=== PATIENT | male | born 1955 | race Caucasian/White ===

== ENCOUNTER → 2019-03-26 | Outpatient (CLI) | payer OTHER ==
[2019-03-26 13:13] LABS: BASO % 0.6 % (0.0-1.0); EOS # 0.1 10^3/uL (0.0-0.50); EOS % 1.4 % (0.0-3.0); HEMATOCRIT 43.3 % (42.0-52.0); HEMOGLOBIN 15.3 g/dl (13.5-17.5); LYMPH # 1.9 10^3/uL (1.5-4.5); LYMPH % 30.2 % (24.0-44.0); MEAN CORPUSCULAR HEMOGLOBIN 33.7 pg (27.0-33.0); MEAN CORPUSCULAR HGB CONC 35.3 g/dl (32.0-36.5); MEAN CORPUSCULAR VOLUME 95.4 fl (80.0-96.0); MONO # 0.6 10^3/uL (0.0-0.8); MONO % 9.1 % (0.0-5.0); NEUTROPHILS # 3.7 10^3/uL (1.8-7.7); NEUTROPHILS % 58.2 % (36.0-66.0); PLATELET COUNT, AUTOMATED 235 10^3/uL (150-450); RED BLOOD COUNT 4.54 10^6/uL (4.30-6.10); WHITE BLOOD COUNT 6.4 10^3/uL (4.0-10.0)
[2019-03-26 13:48] LABS: ALBUMIN 4.2 GM/DL (3.2-5.2); ALT/SGPT 52 U/L (12-78); BILIRUBIN,TOTAL 0.5 MG/DL (0.2-1.0); BLOOD UREA NITROGEN 24 MG/DL (7-18); CALCIUM LEVEL 9.5 MG/DL (8.8-10.2); CARBON DIOXIDE LEVEL 31 MEQ/L (21-32); CHLORIDE LEVEL 104 MEQ/L (98-107); CREATININE FOR GFR 1.01 MG/DL (0.70-1.30); FREE T4 1.16 NG/DL (0.76-1.46); GLOMERULAR FILTRATION RATE > 60.0 (>49); GLUCOSE, FASTING 78 MG/DL (70-100); MAGNESIUM LEVEL 2.3 MG/DL (1.8-2.4); SODIUM LEVEL 141 MEQ/L (136-145); TOTAL PROTEIN 7.5 GM/DL (6.4-8.2)
[2019-03-28 00:08] LABS: Lyme Disease IgG/IgM Antibodie <0.91 ISR (0.00-0.90); Lyme Disease IgM Ab Quantitati <0.80 index (0.00-0.79)
== END ==
LOC: M WUC 10:39
PROVIDERS: ATTEND Physician Assistant
DX: R00.2 Palpitations (principal)

== ENCOUNTER → 2019-05-28 | Outpatient (CLI) | payer BC, OTHER ==
--- NOTE | 2019-05-31 19:52 | SLEEPHOME ---
DATE OF PROCEDURE: 05/30/2019 ORDERED BY: Junior Gabriel [facility] home sleep testing was performed due to concern for the obstructive sleep apnea syndrome. For testing a nocturnal T3 respiratory monitoring device was used. Continuous record was made of pulse, oxygen saturation, airflow, chest, abdominal strain and body position. 9 hours of 59 minutes of data were reviewed. There were 5 hours and 45 minutes marked as time in bed. During the interval marked time in bed, there were 68 respiratory events identified of 10 seconds in duration or greater for a respiratory event index of 11.8. The events were both mixed central and obstructive. There were 28 mixed and central events. Baseline pulse rate 54, pulse rate ranged 46-84. Baseline saturation 95%, saturations fell to 90%. Testing was performed in both the supine and nonsupine positions. IMPRESSION: Abnormal home sleep testing with repetitive respiratory events and oxygen desaturations to 90% with a respiratory event index of 11.8 is consistent with the obstructive sleep apnea syndrome. RECOMMENDATIONS: The patient should be encouraged to undergo a formal sleep evaluation.
== END ==
LOC: M SLEEP HO 07:46
PROVIDERS: ATTEND Physician Assistant
DX: R53.83 Other fatigue (principal)

== ENCOUNTER → 2019-09-03 | Outpatient (REF) | payer OTHER, BC ==
[2019-09-03 12:36] LABS: BASO # 0.1 10^3/uL (0.0-0.2); BASO % 0.7 % (0.0-1.0); EOS # 0.1 10^3/uL (0.0-0.5); EOS % 0.8 % (0.0-3.0); HEMATOCRIT 41.2 % (42.0-52.0); HEMOGLOBIN 14.8 g/dl (13.5-17.5); LYMPH # 1.9 10^3/uL (1.5-5.0); LYMPH % 26.6 % (24.0-44.0); MEAN CORPUSCULAR HEMOGLOBIN 33.2 pg (27.0-33.0); MEAN CORPUSCULAR HGB CONC 35.9 g/dl (32.0-36.5); MEAN CORPUSCULAR VOLUME 92.4 fl (80.0-96.0); MONO # 0.4 10^3/uL (0.0-0.8); MONO % 6.2 % (0.0-5.0); NEUTROPHILS # 4.6 10^3/uL (1.5-8.5); NEUTROPHILS % 65.4 % (36.0-66.0); PLATELET COUNT, AUTOMATED 202 10^3/uL (150-450); RED BLOOD COUNT 4.46 10^6/uL (4.30-6.10); WHITE BLOOD COUNT 7.1 10^3/uL (4.0-10.0)
[2019-09-03 13:06] LABS: ALBUMIN 3.9 GM/DL (3.2-5.2); ALT/SGPT 57 U/L (12-78); BILIRUBIN,TOTAL 0.8 MG/DL (0.2-1.0); BLOOD UREA NITROGEN 17 MG/DL (7-18); CALCIUM LEVEL 9.2 MG/DL (8.8-10.2); CARBON DIOXIDE LEVEL 30 MEQ/L (21-32); CHLORIDE LEVEL 104 MEQ/L (98-107); CHOLESTEROL LEVEL 192 MG/DL (<200); CREATININE FOR GFR 1.03 MG/DL (0.70-1.30); FREE T4 1.22 NG/DL (0.76-1.46); GLOMERULAR FILTRATION RATE > 60.0 (>49); GLUCOSE, FASTING 92 MG/DL (70-100); HDL CHOLESTEROL 58 MG/DL (>40); LDL CHOLESTEROL 118 MG/DL (<100); NON-HDL-C 134 MG/DL; POTASSIUM SERUM 4.2 MEQ/L (3.5-5.1); SODIUM LEVEL 140 MEQ/L (136-145); TOTAL PROTEIN 6.9 GM/DL (6.4-8.2); TRIGLYCERIDES LEVEL 79 MG/DL (<150)
[2019-09-05 00:06] LABS: PSA TOTAL 0.5 ng/mL (0.0-4.0)
== END ==
LOC: M LABDRAW1 12:08
PROVIDERS: ATTEND Physician Assistant
DX: Z12.5 Encounter for screening for malignant neoplasm of prostate (principal); I10 Essential (primary) hypertension; G47.33 Obstructive sleep apnea (adult) (pediatric)

== ENCOUNTER 2020-07-11 17:20 | Emergency (ER) | payer BC, OTHER ==
[~2020-07-11] VITALS: Ht 177.8 cm; Wt 72.8 kg
[~2020-07-11 17:20] MED LIST changes: -CIPR-249 PO; -FLAG500T PO
[2020-07-11] MEDS ORDERED: NS 1,000 ML IV ONE (18:45)
[2020-07-11 19:39] LABS: BASO % 0.3 % (0.0-1.0); EOS % 0.3 % (0.0-3.0); HEMATOCRIT 39.2 % (42.0-52.0); HEMOGLOBIN 13.3 g/dl (13.5-17.5); LYMPH # 1.1 10^3/uL (1.5-5.0); LYMPH % 9.5 % (24.0-44.0); MEAN CORPUSCULAR HEMOGLOBIN 32.4 pg (27.0-33.0); MEAN CORPUSCULAR HGB CONC 33.9 g/dl (32.0-36.5); MEAN CORPUSCULAR VOLUME 95.6 fl (80.0-96.0); MONO # 0.7 10^3/uL (0.0-0.8); MONO % 5.7 % (0.0-5.0); NEUTROPHILS # 9.8 10^3/uL (1.5-8.5); NEUTROPHILS % 83.7 % (36.0-66.0); PLATELET COUNT, AUTOMATED 182 10^3/uL (150-450); WHITE BLOOD COUNT 11.8 10^3/uL (4.0-10.0)
[2020-07-11 20:14] LABS: ALBUMIN 3.5 GM/DL (3.2-5.2); BILIRUBIN,DIRECT 0.3 MG/DL (0.0-0.2); TOTAL PROTEIN 6.9 GM/DL (6.4-8.2)
[2020-07-11] MEDS ORDERED: ISOVUE-370 76% 100ML VIAL As Ordered ONE (20:18)
--- NOTE | 2020-07-11 21:12 | REPVR ---
PROCEDURE INFORMATION: Exam: CT Abdomen And Pelvis With Contrast Exam date and time: 07/11/2020 8:24 PM Age: 64 years old Clinical indication: Abdominal pain; Localized; Lower; Additional info: Lower abd pain, ? diverticulitis TECHNIQUE: Imaging protocol: Computed tomography of the abdomen and pelvis with intravenous contrast. Radiation optimization: All CT scans at this facility use at least one of these dose optimization techniques: automated exposure control; mA and/or kV adjustment per patient size (includes targeted exams where dose is matched to clinical indication); or iterative reconstruction. Contrast material: ISOVUE 370; Contrast volume: 100 ml; Contrast route: INTRAVENOUS (IV); COMPARISON: CR ABDOMEN FLAT/UPRIGHT PA CHEST 07/11/2020 3:16 PM FINDINGS: Lungs: Minimal bilateral lower lobe dependent atelectasis. Liver: There are multiple hepatic cysts measuring up to 2.2 cm in the posterior right hepatic lobe with a Hounsfield measurement of -6. Gallbladder and bile ducts: Normal. No calcified stones. No ductal dilation. Pancreas: Normal. No ductal dilation. Spleen: Normal. No splenomegaly. Adrenals: Normal. No mass. Kidneys and ureters: There is a right renal cyst measuring 10 mm with a Hounsfield measurement of 8 consistent with a Bosniak 1 cyst. No follow-up imaging is recommended. Stomach and bowel: Colonic diverticulosis with colonic wall thickening and pericolonic induration of the mid sigmoid colon along the left pelvic sidewall. There is thickening of the adjacent lateral pelvic fascia with some induration of the adjacent extraperitoneal fat. No pericolonic abscess is seen. There is minimal microperforation with punctate focus of contained gas along the left lateral pelvic fascia. Appendix: There are no changes of appendicitis. A normal appendix is not seen. Intraperitoneal space: Unremarkable. No free air. No significant fluid collection. Vasculature: There is mild calcification of the abdominal aorta with extension into the iliac arteries. Lymph nodes: Unremarkable. No enlarged lymph nodes. Urinary bladder: Unremarkable as visualized. Reproductive: Unremarkable as visualized. Bones/joints: Bilateral spondylolysis of L5 with grade 2 anterolisthesis and degenerative interspace narrowing at L5-S1. There is mild degenerative change of the lower thoracic and lumbar spine. Soft tissues: Unremarkable. IMPRESSION: 1. Colonic diverticulosis with mild diverticulitis of the mid sigmoid which extends along the low left lateral pelvic sidewall. There is minimal contained microperforation with trace gas noted along the left lateral pelvic fascia. 2. Bilateral spondylolysis of L5 with grade 2 anterolisthesis and degenerative disc narrowing. COMMENTS: Consistent with the [employer] [place] [employer]'s Incidental Findings Committee white paper (J Am Edward Radiol 2018): Any incidental renal lesion less than 1 cm or classified as too small to characterize, or any incidental cystic renal lesion characterized as simple-appearing, is likely benign. No follow-up imaging is recommended for these lesions per consensus recommendations based on imaging criteria. Electronically signed by: Axel Castañeda On 07/11/2020 21:11:42 PM
[2020-07-11] MEDS ORDERED: CIPROFLOXACIN 500MG TABLET PO ONE (22:00)
[2020-07-11] MEDS ORDERED: metroNIDAZOLE (FLAGYL) 500MG TABLET PO ONE (22:00)
[2020-07-11] MEDS ORDERED: FLAG500T PO (22:03)
[2020-07-11] MEDS ORDERED: CIPR-249 PO (22:03)
[2020-07-11 22:27] VITALS: BP 158/81
== END 2020-07-11 22:28 | disposition home or self-care (01) ==
LOC: M ED 17:20
DX: K57.20 Diverticulitis of large intestine with perforation and abscess without bleeding (principal); I10 Essential (primary) hypertension; Z79.899 Other long term (current) drug therapy
CPT/HCPCS: 74177; 80047; 80076; 81001; 83605; 83690; 85025; 96360; 99284; Q9967

== ENCOUNTER → 2020-07-11 | Outpatient (CLI) | payer BC, OTHER ==
[~2020-07-11] MED LIST: CIPR-249 PO; FLAG500T PO; LISI10TA4 PO
--- NOTE | 2020-07-16 15:31 | REPPI ---
ABDOMEN SERIES: 4-VIEWS HISTORY: Abdomen pain. FINDINGS: Supine and erect views of the abdomen demonstrate moderate stool in the transverse colon and rectum. No small or large bowel pathologic dilation is seen. Flank stripes and psoas margins are intact. No mass or organomegaly is seen. No free air is seen. Upright chest radiograph shows no evidence of infiltrate. Heart size is normal. Pleural angles are sharp. IMPRESSION: Moderate stool. Otherwise negative abdominal series. MTDD
== END ==
LOC: M PLAIMG 14:58
PROVIDERS: ATTEND Physician Assistant
DX: R10.9 Unspecified abdominal pain (principal)

== ENCOUNTER → 2021-12-14 | Outpatient (CLI) | payer BC, OTHER ==
[~2021-12-14] MED LIST changes: +CIPR-249 PO; +FLAG500T PO; +LISI10TA22 PO; -LISI10TA4 PO
[2021-12-14 10:42] LABS: BASO % 0.8 % (0.0-1.0); EOS # 0.1 10^3/uL (0.0-0.5); EOS % 1.1 % (0.0-3.0); HEMATOCRIT 40.1 % (42.0-52.0); LYMPH # 1.5 10^3/uL (1.5-5.0); LYMPH % 28.8 % (24.0-44.0); MEAN CORPUSCULAR HEMOGLOBIN 32.6 pg (27.0-33.0); MEAN CORPUSCULAR HGB CONC 34.9 g/dl (32.0-36.5); MEAN CORPUSCULAR VOLUME 93.5 fl (80.0-96.0); MONO # 0.4 10^3/uL (0.0-0.8); MONO % 7.4 % (2.0-8.0); NEUTROPHILS # 3.2 10^3/uL (1.5-8.5); NEUTROPHILS % 61.5 % (36.0-66.0); PLATELET COUNT, AUTOMATED 192 10^3/uL (150-450); RED BLOOD COUNT 4.29 10^6/uL (4.30-6.10); WHITE BLOOD COUNT 5.3 10^3/uL (4.0-10.0)
[2021-12-14 11:23] LABS: ALBUMIN 3.6 GM/DL (3.2-5.2); ALT/SGPT 48 U/L (12-78); BILIRUBIN,TOTAL 0.5 MG/DL (0.2-1.0); BLOOD UREA NITROGEN 16 MG/DL (7-18); CARBON DIOXIDE LEVEL 29 MEQ/L (21-32); CHLORIDE LEVEL 106 MEQ/L (98-107); CHOLESTEROL LEVEL 176 MG/DL (<200); CREATININE FOR GFR 1.04 MG/DL (0.70-1.30); FREE T4 1.19 NG/DL (0.76-1.46); GLOMERULAR FILTRATION RATE > 60.0 (>49); GLUCOSE, FASTING 101 MG/DL (70-100); HDL CHOLESTEROL 50 MG/DL (>40); LDL CHOLESTEROL 117 MG/DL (<100); NON-HDL-C 126 MG/DL; POTASSIUM SERUM 4.3 MEQ/L (3.5-5.1); SODIUM LEVEL 140 MEQ/L (136-145); THYROID STIMULATING HORMONE 0.927 uIU/ML (0.358-3.740); TOTAL PROTEIN 6.6 GM/DL (6.4-8.2); TRIGLYCERIDES LEVEL 45 MG/DL (<150)
[2021-12-15 23:10] LABS: PSA TOTAL 0.4 ng/mL (0.0-4.0)
== END ==
LOC: M LAB 09:21
PROVIDERS: ATTEND Nurse Practitioner Adult Health
DX: Z12.5 Encounter for screening for malignant neoplasm of prostate (principal); I10 Essential (primary) hypertension

== ENCOUNTER 2022-02-01 00:19 | Emergency (ER) | payer BC, OTHER ==
[~2022-02-01] VITALS: Ht 177.8 cm; Wt 75.0 kg
[2022-02-01 00:37] LABS: BASO % 0.6 % (0.0-1.0); EOS # 0.2 10^3/uL (0.0-0.5); EOS % 3.1 % (0.0-3.0); HEMATOCRIT 37.5 % (42.0-52.0); HEMOGLOBIN 12.6 g/dl (13.5-17.5); LYMPH # 2.7 10^3/uL (1.5-5.0); LYMPH % 42.8 % (24.0-44.0); MEAN CORPUSCULAR HEMOGLOBIN 32.6 pg (27.0-33.0); MEAN CORPUSCULAR HGB CONC 33.6 g/dl (32.0-36.5); MEAN CORPUSCULAR VOLUME 96.9 fl (80.0-96.0); MONO # 0.6 10^3/uL (0.0-0.8); MONO % 8.6 % (2.0-8.0); NEUTROPHILS # 2.9 10^3/uL (1.5-8.5); NEUTROPHILS % 44.7 % (36.0-66.0); PLATELET COUNT, AUTOMATED 178 10^3/uL (150-450); RED BLOOD COUNT 3.87 10^6/uL (4.30-6.10); WHITE BLOOD COUNT 6.4 10^3/uL (4.0-10.0)
[2022-02-01 00:49] LABS: INR 1.02; PROTHROMBIN TIME 13.8 SECONDS (12.7-14.5)
[2022-02-01] MEDS ORDERED: GI COCKTAIL 50ML BTL(HYOSCYAMINE/MAALOX/LIDOCAINE VISCOUS)(1:3:1) PO ONE (00:55)
[2022-02-01 01:05] LABS: CK-MB VALUE MASS 1.5 NG/ML (<3.6); MB/CK RELATIVE INDEX 3.12 (< OR =4)
[2022-02-01 01:07] LABS: ALBUMIN 3.4 GM/DL (3.2-5.2); ALT/SGPT 40 U/L (12-78); BILIRUBIN,DIRECT 0.1 MG/DL (0.0-0.2); BILIRUBIN,TOTAL 0.3 MG/DL (0.2-1.0); BLOOD UREA NITROGEN 30 MG/DL (7-18); CALCIUM LEVEL 8.9 MG/DL (8.8-10.2); CARBON DIOXIDE LEVEL 32 MEQ/L (21-32); CHLORIDE LEVEL 106 MEQ/L (98-107); CREATININE FOR GFR 1.12 MG/DL (0.70-1.30); GLOMERULAR FILTRATION RATE > 60.0 (>49); GLUCOSE, FASTING 105 MG/DL (70-100); LIPASE 81 U/L (73-393); NT-PRO BNP 30 PG/ML (<125); POTASSIUM SERUM 4.5 MEQ/L (3.5-5.1); SODIUM LEVEL 139 MEQ/L (136-145); TOTAL PROTEIN 5.9 GM/DL (6.4-8.2)
[2022-02-01 01:56] LABS: CK-MB VALUE MASS 1.4 NG/ML (<3.6); MB/CK RELATIVE INDEX 2.92 (< OR =4)
[2022-02-01] MEDS: GASTROGRAFIN SOLUTION 30ML PO SCH ×2 (01:58→02:30)
[2022-02-01] MEDS ORDERED: CARA1TAB6 PO (03:31)
[2022-02-01 03:45] VITALS: BP 119/70
== END 2022-02-01 04:06 | disposition home or self-care (01) ==
LOC: EDBD 00:19 → M ED 00:19
DX: K27.9 Peptic ulcer, site unspecified, unspecified as acute or chronic, without hemorrhage or perforation (principal); I10 Essential (primary) hypertension; Z87.19 Personal history of other diseases of the digestive system; Z79.899 Other long term (current) drug therapy

== ENCOUNTER → 2022-02-20 | Outpatient (CLI) | payer BC, OTHER ==
[~2022-02-20] MED LIST changes: +CARA1TAB6 PO
== END ==
LOC: M LABSMTC 11:27
PROVIDERS: ATTEND Anesthesiology
DX: Z01.812 Encounter for preprocedural laboratory examination (principal); Z20.822 Contact with and (suspected) exposure to COVID-19

== ENCOUNTER 2022-02-25 07:12 | Day surgery (SDC) | payer BC, OTHER ==
[~2022-02-25] VITALS: Ht 177.8 cm; Wt 71.1 kg
[~2022-02-25 07:12] MED LIST changes: +NS 1,000 ML IV ONE
[2022-02-25] MEDS ORDERED: propofoL 200 MG/20 ML VIAL As Ordered ONE ×2 (08:33→08:35)
[2022-02-25] MEDS ORDERED: LIDOCAINE 2% 100MG/5ML SDV (FOR ANES.) As Ordered ONE (08:33)
[2022-02-25 09:04] VITALS: BP 136/84
== END 2022-02-25 09:05 | disposition home or self-care (01) ==
LOC: M OPP 07:12
PROVIDERS: ATTEND Surgery
DX: Z12.11 Encounter for screening for malignant neoplasm of colon (principal); D12.7 Benign neoplasm of rectosigmoid junction; K64.2 Third degree hemorrhoids; Z79.899 Other long term (current) drug therapy

== ENCOUNTER → 2022-07-20 | Outpatient (CLI) | payer BC, OTHER ==
[~2022-07-20] MED LIST changes: -NS 1,000 ML IV ONE
== END ==
LOC: M RAD 16:10
PROVIDERS: ATTEND Nurse Practitioner Adult Health
DX: M25.512 Pain in left shoulder (principal); M25.561 Pain in right knee

== ENCOUNTER → 2023-02-23 | Outpatient (CLI) | payer BC, OTHER ==
[~2023-02-23] MED LIST changes: +ISOVUE-370 76% 100ML VIAL As Ordered ONE
[2023-02-23 13:39] LABS: BASO % 0.3 % (0.0-1.0); EOS # 0.1 10^3/uL (0.0-0.5); EOS % 0.6 % (0.0-3.0); HEMATOCRIT 45.7 % (42.0-52.0); LYMPH # 2.5 10^3/uL (1.5-5.0); LYMPH % 16.8 % (24.0-44.0); MEAN CORPUSCULAR VOLUME 94.2 fl (80.0-96.0); MONO # 1.1 10^3/uL (0.0-0.8); MONO % 7.2 % (2.0-8.0); NEUTROPHILS # 11.1 10^3/uL (1.5-8.5); NEUTROPHILS % 74.7 % (36.0-66.0); PLATELET COUNT, AUTOMATED 295 10^3/uL (150-450); RED BLOOD COUNT 4.85 10^6/uL (4.30-6.10); WHITE BLOOD COUNT 14.9 10^3/uL (4.0-10.0)
[2023-02-23 13:50] LABS: ALBUMIN 3.9 G/DL (3.2-5.2); ALKALINE PHOSPHATASE 63 U/L (46-116); ALT/SGPT 30 U/L (7.0-40); AST/SGOT 14 U/L (<34); BILIRUBIN,TOTAL 0.8 MG/DL (0.3-1.2); BLOOD UREA NITROGEN 22 MG/DL (9-23); CALCIUM LEVEL 9.5 MG/DL (8.3-10.6); CARBON DIOXIDE LEVEL 34 MMOL/L (20-31); CHLORIDE LEVEL 99 MMOL/L (98-107); CREATININE FOR GFR 1.05 MG/DL (0.70-1.30); GLOMERULAR FILTRATION RATE > 60.0 (>49); GLUCOSE, FASTING 101 MG/DL (74-106); POTASSIUM SERUM 4.4 MMOL/L (3.5-5.1); SODIUM LEVEL 135 MMOL/L (136-145); TOTAL PROTEIN 7.2 G/DL (5.7-8.2)
[2023-02-23 14:48] LABS: ERYTHROCYTE SEDIMENTATION RATE 31 mm/hr (0-20)
== END ==
LOC: M LAB 12:48
PROVIDERS: ATTEND Family Medicine
DX: J36 Peritonsillar abscess (principal)
CPT/HCPCS: 36415; 70491; 80053; 85025; 85652; 86140; Q9967

== ENCOUNTER 2023-03-11 08:47 | Observation (INO) | payer BC, OTHER ==
[~2023-03-11] VITALS: Ht 177.8 cm; Wt 72.0 kg
[~2023-03-11 08:47] MED LIST changes: -ISOVUE-370 76% 100ML VIAL As Ordered ONE
[2023-03-11] MEDS ORDERED: NS 1,000 ML IV ONE ×2 (11:05→14:25)
[2023-03-11 11:49] LABS: BASO % 0.3 % (0.0-1.0); EOS % 0.3 % (0.0-3.0); HEMATOCRIT 43.8 % (42.0-52.0); HEMOGLOBIN 14.7 g/dl (13.5-17.5); LYMPH # 1.4 10^3/uL (1.5-5.0); LYMPH % 10.4 % (24.0-44.0); MEAN CORPUSCULAR HEMOGLOBIN 32.4 pg (27.0-33.0); MEAN CORPUSCULAR HGB CONC 33.6 g/dl (32.0-36.5); MEAN CORPUSCULAR VOLUME 96.5 fl (80.0-96.0); MONO # 0.9 10^3/uL (0.0-0.8); MONO % 6.4 % (2.0-8.0); NEUTROPHILS # 11.1 10^3/uL (1.5-8.5); NEUTROPHILS % 82.2 % (36.0-66.0); PLATELET COUNT, AUTOMATED 191 10^3/uL (150-450); RED BLOOD COUNT 4.54 10^6/uL (4.30-6.10); WHITE BLOOD COUNT 13.6 10^3/uL (4.0-10.0)
[2023-03-11 12:15] LABS: C REACTIVE PROTEIN QUANTITATIV < 0.40 MG/DL (<1.0)
[2023-03-11 12:16] LABS: BLOOD UREA NITROGEN 23 MG/DL (9-23); CALCIUM LEVEL 9.2 MG/DL (8.3-10.6); CARBON DIOXIDE LEVEL 31 MMOL/L (20-31); CHLORIDE LEVEL 100 MMOL/L (98-107); CREATININE FOR GFR 0.87 MG/DL (0.70-1.30); ERYTHROCYTE SEDIMENTATION RATE 22 mm/hr (0-20); GLOMERULAR FILTRATION RATE > 60.0 (>49); GLUCOSE, FASTING 101 MG/DL (74-106); POTASSIUM SERUM 4.4 MMOL/L (3.5-5.1); SODIUM LEVEL 137 MMOL/L (136-145)
[2023-03-11] MEDS ORDERED: ISOVUE-370 76% 100ML VIAL As Ordered ONE (12:20)
[2023-03-11 12:23] LABS: MONO REFLEX EBV COMP NEGATIVE (NEGATIVE)
[2023-03-11] MEDS ORDERED: CLINDAMYCIN 300 MG in IV 1 EA IV ONE (14:10)
[2023-03-11] MEDS ORDERED: dexAMETHasone 20MG/5ML VIAL IV ONE (14:25)
[2023-03-11] MEDS ORDERED: ACETAMINOPHEN TAB 650MG DOSE (2X325MG) PO PRN (14:30)
[2023-03-11] MEDS ORDERED: HOME MED LIST COMPLETE! XX SCH (15:20)
[2023-03-11] MEDS ORDERED: LIDOCAINE W/EPINEPHRINE 1% 20ML VIAL As Ordered ONE (18:18)
[2023-03-11] MEDS ORDERED: LIDOCAINE 2% 100MG/5ML SDV (FOR ANES.) As Ordered ONE (18:27)
[2023-03-11] MEDS ORDERED: ONDANSETRON 4MG 2ML VIAL As Ordered ONE (18:27)
[2023-03-11] MEDS ORDERED: SUGAMMADEX SODIUM 500 MG/5 ML VIAL (BRIDION) As Ordered ONE (18:27)
[2023-03-11] MEDS ORDERED: ROCURONIUM BROMIDE 50MG/5ML VIAL As Ordered ONE (18:27)
[2023-03-11] MEDS ORDERED: PHENYLephrine 500MCG 5ML (100MCG/ML) SYRINGE As Ordered ONE (18:27)
[2023-03-11] MEDS ORDERED: MIDAZOLAM INJ 2MG/2ML VIAL As Ordered ONE (18:27)
[2023-03-11] MEDS ORDERED: fentaNYL 250 MCG/5 ML INJECTION As Ordered ONE (18:27)
[2023-03-11] MEDS ORDERED: ACETAMINOPHEN 1000MG 100ML IV BAG As Ordered ONE (18:27)
[2023-03-11] MEDS ORDERED: propofoL 200 MG/20 ML VIAL As Ordered ONE (18:27)
[2023-03-11] MEDS ORDERED: NALOXONE INJ 0.4MG/1ML VIAL As Ordered ONE (18:43)
[2023-03-11 20:00] VITALS: BP 151/92; TEMP 97.9; O2SAT 96
[2023-03-11 20:28] VITALS: BP 148/91; TEMP 97.9; O2SAT 96
[2023-03-11 21:30] VITALS: BP 126/74; TEMP 97.9; O2SAT 95
[2023-03-11 22:30] VITALS: BP 124/74; TEMP 97.7; O2SAT 97
[2023-03-11] MEDS: CLINDAMYCIN 600 MG in IV 1 EA IV SCH (22:57)
[2023-03-11 23:30] VITALS: BP 125/76; TEMP 97.7; O2SAT 97
[2023-03-12 02:00] VITALS: BP 110/71; TEMP 97.7; O2SAT 98
[2023-03-12 06:00] VITALS: BP 118/73; TEMP 97.7; O2SAT 97
[2023-03-12] MEDS: CLINDAMYCIN 600 MG in IV 1 EA IV SCH ×3 (06:11→22:48)
[2023-03-12 07:08] LABS: HEMOGLOBIN 13.1 g/dl (13.5-17.5); MEAN CORPUSCULAR HEMOGLOBIN 32.5 pg (27.0-33.0); MEAN CORPUSCULAR HGB CONC 34.5 g/dl (32.0-36.5); MEAN CORPUSCULAR VOLUME 94.3 fl (80.0-96.0); PLATELET COUNT, AUTOMATED 164 10^3/uL (150-450); RED BLOOD COUNT 4.03 10^6/uL (4.30-6.10); WHITE BLOOD COUNT 7.6 10^3/uL (4.0-10.0)
[2023-03-12 07:39] LABS: BLOOD UREA NITROGEN 17 MG/DL (9-23); CALCIUM LEVEL 8.5 MG/DL (8.3-10.6); CARBON DIOXIDE LEVEL 27 MMOL/L (20-31); CHLORIDE LEVEL 102 MMOL/L (98-107); CREATININE FOR GFR 0.78 MG/DL (0.70-1.30); GLOMERULAR FILTRATION RATE > 60.0 (>49); GLUCOSE, FASTING 154 MG/DL (74-106); POTASSIUM SERUM 4.2 MMOL/L (3.5-5.1); SODIUM LEVEL 136 MMOL/L (136-145)
[2023-03-12 09:29] LABS: HIV 1&2 SCREEN NEGATIVE (NEGATIVE)
[2023-03-12] MEDS ORDERED: CLIN150C17 PO (10:33)
[2023-03-12] MEDS: ENOXAPARIN 40MG/0.4ML SYRINGE (J1650 PER 10MG) SC SCH (10:40)
[2023-03-12] MEDS ORDERED: LR 1,000 ML IV ONE (12:25)
[2023-03-12] MEDS ORDERED: LR 1,000 ML IV SCH (12:25)
[2023-03-12 14:00] VITALS: BP 116/59; TEMP 98.8; O2SAT 97
[2023-03-12 19:10] LABS: EBV AB TO NUCLEAR ANTIGEN >600.0 U/mL (0.0-17.9); EBV VIRAL CAPSID AG IgG 92.5 U/mL (0.0-17.9); EBV VIRAL CAPSID AG IgM <36.0 U/mL (0.0-35.9)
[2023-03-12 21:51] VITALS: BP 100/59; TEMP 98.1; O2SAT 98
[2023-03-13 06:00] VITALS: BP 124/63; TEMP 98.2; O2SAT 96
[2023-03-13] MEDS: CLINDAMYCIN 600 MG in IV 1 EA IV SCH (06:13)
[2023-03-13 08:09] VITALS: BP 117/62
[2023-03-13] MEDS: ENOXAPARIN 40MG/0.4ML SYRINGE (J1650 PER 10MG) SC SCH (08:09)
[2023-03-13] MEDS ORDERED: BACI1TAB20 PO (08:24)
== END 2023-03-13 11:00 | disposition home or self-care (01) ==
LOC: M ED 08:47 → M ED INP 14:56 → M MS5PR 16:40
PROVIDERS: ADMIT Internal Medicine; ATTEND Internal Medicine
DX: J36 Peritonsillar abscess (principal); I10 Essential (primary) hypertension; E87.20 Acidosis, unspecified; R53.83 Other fatigue; M79.10 Myalgia, unspecified site; Z86.19 Personal history of other infectious and parasitic diseases; Z87.891 Personal history of nicotine dependence; Z79.899 Other long term (current) drug therapy
CPT/HCPCS: 36415; 42700; 70491; 80048; 83605; 85025; 85027; 85652; 86140; 86308; 86664; 86665; 87040; 87389; 87486; 87581; 87633; 87798; 96361; 96372; 96374; 96375; 96376; 99284; J0131; J1100; J1650; J2250; J2310; J2370; J2405; J3010; Q9967; S0077

== ENCOUNTER 2023-04-17 13:41 | Emergency (ER) | payer BC, OTHER ==
[~2023-04-17] VITALS: Ht 177.8 cm; Wt 73.4 kg
[~2023-04-17 13:41] MED LIST changes: +BACI1TAB20 PO; +CLIN150C17 PO
[2023-04-17] MEDS ORDERED: ACET325C5 PO (14:51)
[2023-04-17 14:54] LABS: BASO # 0.1 10^3/uL (0.0-0.2); BASO % 0.4 % (0.0-1.0); EOS # 0.2 10^3/uL (0.0-0.5); EOS % 0.9 % (0.0-3.0); HEMATOCRIT 43.4 % (42.0-52.0); HEMOGLOBIN 15.2 g/dl (13.5-17.5); LYMPH # 1.6 10^3/uL (1.5-5.0); LYMPH % 9.9 % (24.0-44.0); MEAN CORPUSCULAR HEMOGLOBIN 32.6 pg (27.0-33.0); MEAN CORPUSCULAR VOLUME 93.1 fl (80.0-96.0); MONO # 0.9 10^3/uL (0.0-0.8); MONO % 5.4 % (2.0-8.0); NEUTROPHILS # 13.3 10^3/uL (1.5-8.5); PLATELET COUNT, AUTOMATED 209 10^3/uL (150-450); RED BLOOD COUNT 4.66 10^6/uL (4.30-6.10)
[2023-04-17 15:26] LABS: ERYTHROCYTE SEDIMENTATION RATE 17 mm/hr (0-20)
[2023-04-17] MEDS ORDERED: AMPICILLIN SOD/SULBACTAM SOD 3 GM in D5W MINI-BAG PLUS 100 ML IV ONE (16:00)
[2023-04-17] MEDS ORDERED: AMOX875T2 PO (16:27)
[2023-04-17 16:53] VITALS: BP 124/67; TEMP 98.1; O2SAT 99
== END 2023-04-17 17:30 | disposition home or self-care (01) ==
LOC: M ED 13:41
DX: J02.9 Acute pharyngitis, unspecified (principal); D72.829 Elevated white blood cell count, unspecified; Z79.899 Other long term (current) drug therapy
CPT/HCPCS: 80047; 85025; 85652; 86140; 96365; 99283; J0295

== ENCOUNTER → 2023-05-09 | Outpatient (CLI) | payer BC, OTHER ==
[~2023-05-09] MED LIST changes: +ACET325C5 PO; +AMOX875T2 PO
[2023-05-09 09:10] LABS: BLOOD UREA NITROGEN 18 MG/DL (9-23); CREATININE FOR GFR 0.89 MG/DL (0.70-1.30); GLOMERULAR FILTRATION RATE > 60.0 (>49)
== END ==
LOC: M LAB 08:21
PROVIDERS: ATTEND Otolaryngology
DX: R07.0 Pain in throat (principal); J35.01 Chronic tonsillitis

== ENCOUNTER → 2023-05-11 | Outpatient (CLI) | payer BC, OTHER ==
[~2023-05-11] MED LIST changes: +ISOVUE-370 76% 100ML VIAL As Ordered ONE
== END ==
LOC: M RAD 07:19
PROVIDERS: ATTEND Otolaryngology
DX: J36 Peritonsillar abscess (principal)
CPT/HCPCS: 70491; Q9967

== ENCOUNTER 2023-08-18 12:31 | Day surgery (SDC) | payer BC, OTHER ==
[~2023-08-18] VITALS: Ht 177.8 cm; Wt 76.2 kg
[~2023-08-18 12:31] MED LIST changes: -ISOVUE-370 76% 100ML VIAL As Ordered ONE
[2023-08-18] MEDS ORDERED: LR 1,000 ML IV SCH ×2 (13:40→19:00)
[2023-08-18] MEDS ORDERED: SUGAMMADEX SODIUM 500 MG/5 ML VIAL (BRIDION) As Ordered ONE (14:33)
[2023-08-18] MEDS ORDERED: propofoL 200 MG/20 ML VIAL As Ordered ONE ×2 (14:33→17:26)
[2023-08-18] MEDS ORDERED: ROCURONIUM BROMIDE 50MG/5ML VIAL As Ordered ONE (14:33)
[2023-08-18] MEDS ORDERED: ONDANSETRON 4MG 2ML VIAL As Ordered ONE (14:33)
[2023-08-18] MEDS ORDERED: LIDOCAINE 2% 100MG/5ML SDV (FOR ANES.) As Ordered ONE (14:36)
[2023-08-18] MEDS ORDERED: fentaNYL 100 MCG/2 ML INJECTION As Ordered ONE (14:39)
[2023-08-18] MEDS ORDERED: MIDAZOLAM INJ 2MG/2ML VIAL As Ordered ONE (14:39)
[2023-08-18] MEDS ORDERED: LIDOCAINE W/EPINEPHRINE 1% 20ML VIAL As Ordered ONE (18:08)
[2023-08-18] MEDS ORDERED: METHYLENE BLUE 0.5% (5MG/ML) 10 ML AMP (PROVAYBLUE) As Ordered ONE (18:08)
[2023-08-18] MEDS ORDERED: OXYMETAZOLINE 0.05% NASAL SPRAY (AFRIN) As Ordered ONE ×2 (18:09→18:26)
[2023-08-18] MEDS ORDERED: oxyCODONE 5MG TAB PO PRN (19:00)
[2023-08-18] MEDS ORDERED: ONDANSETRON 4MG 2ML VIAL IV PRN (19:00)
[2023-08-18] MEDS ORDERED: HYDROMORPHONE HCL 0.5 MG/ 0.5 ML SYRINGE IV PRN (19:00)
[2023-08-18] MEDS ORDERED: fentaNYL 100 MCG/2 ML INJECTION IV PRN (19:00)
[2023-08-18] MEDS ORDERED: MEPERIDINE 25 MG/ML 1ML VIAL IV PRN (19:15)
[2023-08-18] MEDS ORDERED: MEPERIDINE 25 MG/ML 1ML VIAL As Ordered ONE (19:15)
[2023-08-18 20:15] VITALS: BP 145/68; TEMP 98.2; O2SAT 96
== END 2023-08-18 20:29 | disposition home or self-care (01) ==
LOC: M SDC 12:31
PROVIDERS: ATTEND Otolaryngology
DX: J35.8 Other chronic diseases of tonsils and adenoids (principal); J35.1 Hypertrophy of tonsils; I10 Essential (primary) hypertension; Z79.899 Other long term (current) drug therapy; Z90.49 Acquired absence of other specified parts of digestive tract
CPT/HCPCS: 31536; 88305; 93005; J1100; J2175; J2250; J2405; J3010; Q9968

== ENCOUNTER 2025-04-06 10:20 | Emergency (ER) | payer BC, OTHER ==
[~2025-04-06] VITALS: Ht 177.8 cm; Wt 75.3 kg
[2025-04-06 10:23] VITALS: TEMP 98.5
[2025-04-06 11:59] VITALS: BP 168/74; O2SAT 98
== END 2025-04-06 12:01 | disposition home or self-care (01) ==
LOC: M ED 10:20
DX: M11.262 Other chondrocalcinosis, left knee (principal); I10 Essential (primary) hypertension; Z79.899 Other long term (current) drug therapy